=== PATIENT | female | born 2000 | race Asian ===

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

== ENCOUNTER → 2020-09-17 17:11 | Outpatient (CLI) | payer OTHER, MEDICAID, SELFPAY ==
[2020-09-17 18:17] LABS: Add Manual Diff / Slide Review NO; Basophils Absolute Auto 0 /uL (0-100); Basophils Percent Auto 0.4 % (0-2); Eosinophils Absolute Auto 100 /uL (0-450); Eosinophils Percent Auto 1.5 % (2-4); Hematocrit 42.8 % (36-46); Hemoglobin 14.5 g/dL (12.0-16.0); Lymphocytes Absolute Auto 2900 /uL (1100-4500); Lymphocytes Percent Auto 39.4 % (25-40); Mean Corpuscular HGB Conc 33.8 % (30-36); Mean Corpuscular Hemoglobin 29.2 PG (26-34); Mean Corpuscular Volume 86.5 fL (80-100); Monocytes Absolute Auto 600 /uL (0-900); Monocytes Percent Auto 7.6 % (3-14); Neutrophils Absolute Auto 3800 /uL (1500-7000); Neutrophils Percent Auto 51.1 % (50-75); Platelet Count 295 X10^3/uL (150-400); Red Blood Cell Count 4.95 X10^6/uL (4.0-5.2); Red Cell Distribution Width 13.1 % (11.6-14.8); White Blood Cell Count 7.4 X10^3/uL (4.5-11.0)
[2020-09-17 18:30] LABS: Alanine Aminotransferase 39 IU/L (<35); Albumin 4.6 g/dL (3.5-5.0); Albumin Globulin Ratio 1.5 (1.0-2.8); Alkaline Phosphatase 65 U/L (38-126); Aspartate Aminotransferase 28 IU/L (14-36); BUN Creatinine Ratio 22.7 (6-22); Bilirubin Total 0.3 mg/dL (0.2-1.3); Blood Urea Nitrogen 15 mg/dL (7-17); Calcium 9.6 mg/dL (8.4-10.2); Carbon Dioxide 24 mmol/L (22-32); Chloride 105 mmol/L (98-107); Estimated Glomerular Filt Rate > 60.0 mL/min (>60); Globulin 3.1 g/dL (1.7-4.1); Glucose 105 mg/dL (70-100); HEMOLYSIS < 15 (0-50); Potassium 3.8 mmol/L (3.4-5.1); Sodium 140 mmol/L (137-145); Total Protein 7.7 g/dL (6.3-8.2)
== END ==
PROVIDERS: PCP Family Medicine; Referring Provider Family Medicine; Visit Provider Family Medicine
DX: R42 Dizziness and giddiness (principal)
CPT/HCPCS: 36415; 80053; 85025

== ENCOUNTER → 2021-01-27 16:44 | Outpatient (CLI) | payer OTHER, MEDICAID, SELFPAY ==
[2021-01-27 17:21] LABS: Add Manual Diff / Slide Review NO; Basophils Absolute Auto 0 /uL (0-100); Basophils Percent Auto 0.4 % (0-2); Eosinophils Absolute Auto 100 /uL (0-450); Eosinophils Percent Auto 1.1 % (2-4); Hematocrit 41.9 % (36-46); Hemoglobin 14.4 g/dL (12.0-16.0); Lymphocytes Absolute Auto 3000 /uL (1100-4500); Lymphocytes Percent Auto 34.2 % (25-40); Mean Corpuscular HGB Conc 34.4 % (30-36); Mean Corpuscular Hemoglobin 29.5 PG (26-34); Mean Corpuscular Volume 85.6 fL (80-100); Monocytes Absolute Auto 500 /uL (0-900); Monocytes Percent Auto 6.3 % (3-14); Neutrophils Absolute Auto 5100 /uL (1500-7000); Platelet Count 294 X10^3/uL (150-400); Red Blood Cell Count 4.89 X10^6/uL (4.0-5.2); Red Cell Distribution Width 12.6 % (11.6-14.8); White Blood Cell Count 8.7 X10^3/uL (4.5-11.0)
[2021-01-27 17:30] LABS: Alanine Aminotransferase 35 IU/L (<35); Albumin 4.6 g/dL (3.5-5.0); Albumin Globulin Ratio 1.4 (1.0-2.8); Alkaline Phosphatase 63 U/L (38-126); Aspartate Aminotransferase 30 IU/L (14-36); BUN Creatinine Ratio 16.7 (6-22); Bilirubin Total 0.6 mg/dL (0.2-1.3); Blood Urea Nitrogen 11 mg/dL (7-17); Calcium 9.6 mg/dL (8.4-10.2); Carbon Dioxide 21 mmol/L (22-32); Chloride 107 mmol/L (98-107); Estimated Glomerular Filt Rate > 60.0 mL/min (>60); Globulin 3.4 g/dL (1.7-4.1); Glucose 94 mg/dL (70-100); HEMOLYSIS < 15 (0-50); Potassium 4.1 mmol/L (3.4-5.1); Sodium 139 mmol/L (137-145)
== END ==
PROVIDERS: PCP Family Medicine; Referring Provider Family Medicine; Visit Provider Family Medicine
DX: R74.01 Elevation of levels of liver transaminase levels (principal); L91.0 Hypertrophic scar; M79.671 Pain in right foot; R59.1 Generalized enlarged lymph nodes
CPT/HCPCS: 36415; 80053; 85025

== ENCOUNTER → 2021-02-11 15:46 | Outpatient (CLI) | payer OTHER, MEDICAID, SELFPAY ==
[2021-02-11 16:57] LABS: COVID19 -Nasal RAPID Negative (Negative)
== END ==
PROVIDERS: PCP Family Medicine; Visit Provider Nurse Practitioner
DX: R51.9 Headache, unspecified (principal); R11.0 Nausea; Z20.822 Contact with and (suspected) exposure to COVID-19
CPT/HCPCS: 87635

== ENCOUNTER 2021-02-16 23:49 | Emergency (ER) | payer OTHER, MEDICAID, SELFPAY ==
[2021-02-16 23:52] VITALS: BP 159/86; PULSE 84; RESP 20; TEMP 37.1; O2SAT 99
[2021-02-17 00:27] LABS: UR Morphine/Opiate cutoff 300 Negative (Negative); Ur Creatinine 50 (Normal); Ur Specific Gravity 1.025 (Normal); Urine Amphetamines Negative (Negative); Urine Barbiturates Negative (Negative); Urine Benzodiazepines Negative (Negative); Urine Cocaine Negative (Negative); Urine MDMA Negative (Negative); Urine Methadone Negative (Negative); Urine Methamphetamines Negative (Negative); Urine Oxycodone Negative (Negative); Urine Phencyclidine Negative (Negative); Urine Tetrahydrocannabinol Positive (Negative); Urine Tricyclic Antidepressant Negative (Negative); Urine pH 5 (Normal)
[2021-02-17 00:33] LABS: Acetaminophen < 10 ug/mL (10-30); Alanine Aminotransferase 25 IU/L (<35); Albumin 4.6 g/dL (3.5-5.0); Albumin Globulin Ratio 1.5 (1.0-2.8); Alkaline Phosphatase 57 U/L (38-126); Aspartate Aminotransferase 23 IU/L (14-36); BUN Creatinine Ratio 18.7 (6-22); Bilirubin Total 0.3 mg/dL (0.2-1.3); Blood Urea Nitrogen 14 mg/dL (7-17); Carbon Dioxide 23 mmol/L (22-32); Chloride 109 mmol/L (98-107); Estimated Glomerular Filt Rate > 60.0 mL/min (>60); Ethanol (ETOH) < 10 mg/dL; Glucose 107 mg/dL (70-100); HEMOLYSIS < 15 (0-50); Potassium 3.9 mmol/L (3.4-5.1); Salicylate < 1.0 mg/dL (<20); Sodium 141 mmol/L (137-145); Total Protein 7.6 g/dL (6.3-8.2)
[2021-02-17 00:36] LABS: Add Manual Diff / Slide Review NO; Basophils Absolute Auto 0 /uL (0-100); Basophils Percent Auto 0.4 % (0-2); Eosinophils Absolute Auto 200 /uL (0-450); Eosinophils Percent Auto 1.7 % (2-4); Hematocrit 39.5 % (36-46); Hemoglobin 13.4 g/dL (12.0-16.0); Lymphocytes Absolute Auto 3600 /uL (1100-4500); Mean Corpuscular HGB Conc 33.9 % (30-36); Mean Corpuscular Hemoglobin 29.3 PG (26-34); Mean Corpuscular Volume 86.4 fL (80-100); Monocytes Absolute Auto 700 /uL (0-900); Monocytes Percent Auto 6.8 % (3-14); Neutrophils Absolute Auto 5300 /uL (1500-7000); Neutrophils Percent Auto 54.1 % (50-75); Platelet Count 296 X10^3/uL (150-400); Red Blood Cell Count 4.57 X10^6/uL (4.0-5.2); Red Cell Distribution Width 12.3 % (11.6-14.8); White Blood Cell Count 9.9 X10^3/uL (4.5-11.0)
[2021-02-17 01:21] LABS: Free T4, Direct Thyroxine 1.41 ng/dL (0.78-2.19)
[2021-02-17 01:27] LABS: Thyroid Stimulating Hormone 2.13 uIU/mL (0.47-4.68)
--- NOTE | 2021-02-17 02:13 | ED.PSYCH ---
HPI - Psych General Chief Complaint: Psychiatric Symptoms Stated Complaint: wants mental health help Time Seen by Provider: 02/17/21 01:57 Source: patient Mode of arrival: Ambulatory History of Present Illness HPI Narrative: 20-year-old woman presents after having a stressful day with family members. She felt that she was in the middle of family arguments which brought up old memories and wounds from childhood traumas. She was stressed enough over these issues that she simply picked up her keys walked out and drove to the emergency department. She is not actively suicidal but states she thinks that it would be okay if she were not alive. She states that she could take pills or drive off a bridge she wanted to hurt herself. She has never done anything to try to harm herself before. She has recently discussed some of her anxieties and concerns with her primary care physician but was concerned that many of her issues were simply swept under the rug. Her next appointment with her primary care physician is not until March. She would like help in getting set up with a counselor and in fact left a message with her primary care physician yesterday and was more and more anxious when the office did not return her phone calls. She denies fevers, cough, chills, weight loss, abdominal pain, vomiting, nausea. She notes that she is much more anxious with foot tapping and being emotionally short and demanding with her boyfriend. At this point she still lives with her pain parents and feels that this is a relatively safe place for her to return to and she can also stay with her boyfriend but notes that she has not been particularly kind to him lately as her stressors have increased. She notes that she has been sleeping well and denies any auditory or visual hallucinations. Related Data Previous Rx's Medication Instructions Recorded diazepam 5 mg tablet 5 mg PO DAILY #10 tab 02/17/21 Allergies Allergy/AdvReac Type Severity Reaction Status Date / Time No Known Drug Allergies Allergy Verified 02/11/21 15:33 Review of Systems Review of Systems Narrative: Remainder of complete review of systems is otherwise unremarkable except for that included in the HPI. Patient History Social History Smoking Status: Current some day smoker Smoking Status: Current some day smoker Exam Narrative Exam Narrative: General: Alert appropriate in no acute distress Respiratory: Able to speak in full sentences, no obvious respiratory distress Skin: No obvious rashes, warm and dry Neurologic: Grossly intact no obvious asymmetries or abnormalities Psych: cooperative, flat affect poor eye contact, normal speech fluency and speech content Initial Vital Signs Initial Vital Signs: Vital Signs Temperature 98.7 F 02/16/21 23:52 Pulse Rate 84 02/16/21 23:52 Respiratory Rate 20 02/16/21 23:52 Blood Pressure 159/86 H 02/16/21 23:52 Pulse Oximetry 99 02/16/21 23:52 Course Orders Ordered: ED Orders 02/16/21 23:56 Acetaminophen Stat Complete Blood Count AUTO DIFF Stat Comprehensive Metabolic Panel Stat Ethanol (ETOH) Stat Free T4, Direct Thyroxine Stat Salicylate Stat Thyroid Stimulating Hormone Stat 02/17/21 00:17 Urine Drug Screen, Rapid Stat Discontinued Medications Diazepam (Diazepam 5 Mg Tablet) 5 mg PO NOW ONE Stop: 02/17/21 02:53 Vital Signs Vital signs: Vital Signs - 8 hr 02/16/21 23:52 02/17/21 02:48 Temperature 98.7 F Pulse Rate 84 76 Respiratory Rate 20 18 Blood Pressure 159/86 H 130/71 Pulse Oximetry 99 99 MDM - Psych Lab Data Result diagrams: 02/17/21 00:10 02/17/21 00:10 Labs: Lab Results 02/17/21 02/17/21 02/17/21 Range/Units 00:10 00:10 00:10 WBC 9.9 (4.5-11.0) X10^3/uL RBC 4.57 (4.0-5.2) X10^6/uL Hgb 13.4 (12.0-16.0) g/dL Hct 39.5 (36-46) % MCV 86.4 (80-100) fL MCH 29.3 (26-34) PG MCHC 33.9 (30-36) % RDW 12.3 (11.6-14.8) % Plt Count 296 (150-400) X10^3/uL Neut % (Auto) 54.1 (50-75) % Lymph % (Auto) 37.0 (25-40) % [place] % (Auto) 6.8 (3-14) % Eos % (Auto) 1.7 L (2-4) % Baso % (Auto) 0.4 (0-2) % Neut # (Auto) 5300 (6921-2199) /uL Lymph # (Auto) 3600 (0297-6732) /uL [place] # (Auto) 700 (0-900) /uL Eos # (Auto) 200 (0-450) /uL Baso # (Auto) 0 (0-100) /uL Sodium 141 (137-145) mmol/L Potassium 3.9 (3.4-5.1) mmol/L Chloride 109 H (98-107) mmol/L Carbon Dioxide 23 (22-32) mmol/L BUN 14 (7-17) mg/dL Creatinine 0.75 (0.52-1.04) mg/dL Estimated GFR > 60.0 (>60) mL/min BUN/Creatinine Ratio 18.7 (6-22) Glucose 107 H (70-100) mg/dL Calcium 9.0 (8.4-10.2) mg/dL Total Bilirubin 0.3 (0.2-1.3) mg/dL AST 23 (14-36) IU/L ALT 25 (<35) IU/L Alkaline Phosphatase 57 (38-126) U/L Total Protein 7.6 (6.3-8.2) g/dL Albumin 4.6 (3.5-5.0) g/dL Globulin 3.0 (1.7-4.1) g/dL Albumin/Globulin Ratio 1.5 (1.0-2.8) TSH 2.13 (0.47-4.68) uIU/mL Free T4 1.41 (0.78-2.19) ng/dL Salicylates < 1.0 (<20) mg/dL U Opiates 300ng/mL cut (Negative) Ur Oxycodone Screen (Negative) Urine Methadone Screen (Negative) Acetaminophen < 10 L (10-30) ug/mL Ur Barbiturates Screen (Negative) U Tricyclic Antidepress (Negative) Ur Phencyclidine Scrn (Negative) Ur Amphetamines Screen (Negative) U Methamphetamines Scrn (Negative) Ur MDMA Scrn (Ecstasy) (Negative) U Benzodiazepines Scrn (Negative) Urine Cocaine Screen (Negative) U Marijuana (THC) Screen (Negative) Ethyl Alcohol < 10 ( - 10) mg/dL 02/17/21 Range/Units 00:17 WBC (4.5-11.0) X10^3/uL RBC (4.0-5.2) X10^6/uL Hgb (12.0-16.0) g/dL Hct (36-46) % MCV (80-100) fL MCH (26-34) PG MCHC (30-36) % RDW (11.6-14.8) % Plt Count (150-400) X10^3/uL Neut % (Auto) (50-75) % Lymph % (Auto) (25-40) % [place] % (Auto) (3-14) % Eos % (Auto) (2-4) % Baso % (Auto) (0-2) % Neut # (Auto) (6877-2698) /uL Lymph # (Auto) (9540-8101) /uL [place] # (Auto) (0-900) /uL Eos # (Auto) (0-450) /uL Baso # (Auto) (0-100) /uL Sodium (137-145) mmol/L Potassium (3.4-5.1) mmol/L Chloride (98-107) mmol/L Carbon Dioxide (22-32) mmol/L BUN (7-17) mg/dL Creatinine (0.52-1.04) mg/dL Estimated GFR (>60) mL/min BUN/Creatinine Ratio (6-22) Glucose (70-100) mg/dL Calcium (8.4-10.2) mg/dL Total Bilirubin (0.2-1.3) mg/dL AST (14-36) IU/L ALT (<35) IU/L Alkaline Phosphatase (38-126) U/L Total Protein (6.3-8.2) g/dL Albumin (3.5-5.0) g/dL Globulin (1.7-4.1) g/dL Albumin/Globulin Ratio (1.0-2.8) TSH (0.47-4.68) uIU/mL Free T4 (0.78-2.19) ng/dL Salicylates (<20) mg/dL U Opiates 300ng/mL cut Negative (Negative) Ur Oxycodone Screen Negative (Negative) Urine Methadone Screen Negative (Negative) Acetaminophen (10-30) ug/mL Ur Barbiturates Screen Negative (Negative) U Tricyclic Antidepress Negative (Negative) Ur Phencyclidine Scrn Negative (Negative) Ur Amphetamines Screen Negative (Negative) U Methamphetamines Scrn Negative (Negative) Ur MDMA Scrn (Ecstasy) Negative (Negative) U Benzodiazepines Scrn Negative (Negative) Urine Cocaine Screen Negative (Negative) U Marijuana (THC) Screen Positive H (Negative) Ethyl Alcohol ( - 10) mg/dL Point of Care Testing Test Results Negative Urine Dip Bedside Urine Glucose Negative Bedside Urine Bilirubin - Negative Bedside Urine Ketone - Negative Urine Specific [place] 1.025 Bedside Urine Occult Blood - Negative Bedside Urine pH 6.0 Bedside Urine Protein - Negative Bedside Urine Urobilinogen - Negative Bedside Urine Nitrite - Negative Bedside Urine Leukocytes - Negative Esterase MDM Narrative Medical decision making narrative: 20-year-old woman with increasing anxiety and recent triggers with what sounds like a family argument this evening. She is interested in talking with a counselor. She has left the message with her primary care physician regarding this. Will also ask our high school social studies tutor to see if she can call tomorrow an offer any suggestions on setting up a counseling appointment. She is willing to consider antidepressants which may be very appropriate for her. In the meantime I have given her a very brief prescription for diazepam to help with anxieties during the day. She states that she is not suicidal or homicidal. She is thinking and interacting appropriately. At this point she is safe for home discharge Discharge Plan Departure Patient Disposition: Home Clinical Impression: Acute situational disturbance, Anxiety Depression Qualifiers: Depression Type: unspecified Qualified Code(s): F32.9 - Major depressive disorder, single episode, unspecified Instructions: DI for Anxiety -- Adult, DI for Suicidal Ideation-Adult Activity Restrictions/Additional Instructions: Thank you for coming in today I am sorry that today has been so stressful for you. Please try the 5 mg of Valium/diazepam and see if this is helpful in allowing you to better process the stressors. This is not affects but can be a helpful bridge in getting in to see all of your doctors. A prescription for this was electronically transmitted to [facility] in [place] for you to chicken picker later today. Please contact Dr. Lew is office again and see if you can schedule an appointment sooner to discuss anxiety and depression and the possibility of medications for depression. Please ask if they have further suggestions regarding seeing a counselor I will ask our ER high school social studies tutor to follow-up with you by phone tomorrow to see if she has any additional suggestions for resources that you might be able to access to get in to see a counselor If you feel that you are getting worse, need to hurt yourself or hurt anybody else, please feel free to return to the ER and I am happy to help. Prescriptions: New diazepam 5 mg tablet 5 mg PO DAILY Qty: 10 RF: 0 Referrals: Trista Lew MD [Primary Care Provider] -
[2021-02-17 02:48] VITALS: BP 130/71; PULSE 76; RESP 18; O2SAT 99
[2021-02-17] MEDS: diazePAM 5 MG TABLET PO (03:03)
--- NOTE | 2021-02-17 13:54 | CM.SWNOTE ---
SPECIAL NEEDS TUTOR Note for F/U SPECIAL NEEDS TUTOR receives consult for f/u from ED provider Dr. Gonsalez. Patient presents to the ED early this morning with concern for anxiety and depression and SI. Patient denies current SI upon d/c from the ED and Dr. Gonsalez requests f/u for support in seeking MH outpatient provider for patient. SPECIAL NEEDS TUTOR calls patient and patient endorses that she is need of a MH provider. Patient states she called [facility] and they have openings but they are not meeting with patients in person and she prefers in person sessions. Patient endorses she has medicaid/espinoza insurance. SPECIAL NEEDS TUTOR endorses that SPECIAL NEEDS TUTOR will call around [facility] providers and look for openings. SPECIAL NEEDS TUTOR calls [facility] and it is reported that they are fully booked with an extensive waiting list. It is suggested that SPECIAL NEEDS TUTOR tries calling [facility] (telehealth), [facility] in [place], [place] , or [email or web address]. SPECIAL NEEDS TUTOR calls [facility] and leaves requesting return call. SPECIAL NEEDS TUTOR calls [facility] and it is reported that they are not taking new clients but [facility] may be. SPECIAL NEEDS TUTOR calls [facility] and SPECIAL NEEDS TUTOR provides patient information, it is reported they are are accepting patients and in person sessions. SPECIAL NEEDS TUTOR provides patient's contact information. [facility] reports they will call patient later today to set up an intake appointment. SPECIAL NEEDS TUTOR calls patient back. Patient endorses agreement and understanding. SPECIAL NEEDS TUTOR endorses that patient should call SPECIAL NEEDS TUTOR back if she does not hear from [facility] at the end of the day. Patient endorses she is feeling better since leaving the hospital, but she is tired. Patient states she has an appointment with Dr. Lew her PCP for next week. DELIA Ohara
== END 2021-02-17 03:09 | disposition home or self-care (01) ==
PROVIDERS: Emergency Provider Emergency Medicine; PCP Family Medicine
DX: F43.0 Acute stress reaction (principal); F41.9 Anxiety disorder, unspecified; F32.9 Major depressive disorder, single episode, unspecified
CPT/HCPCS: 36415; 80053; 80305; 80320; 80329; 81003; 81025; 84439; 84443; 85025; 99284; G0480

== ENCOUNTER → 2022-01-07 16:18 | Outpatient (ROUT) | payer OTHER, MEDICAID, SELFPAY ==
[2022-01-07 16:37] LABS: COVID19 -Nasal RAPID POSITIVE (Negative)
== END ==
PROVIDERS: PCP Family Medicine; Visit Provider Family Medicine
DX: R05.9 Cough, unspecified (principal); U07.1 COVID-19
CPT/HCPCS: 87635

== ENCOUNTER 2022-02-06 16:13 | Emergency (ER) | payer OTHER, MEDICAID, SELFPAY ==
[2022-02-06 16:17] VITALS: BP 150/85; PULSE 93; RESP 20; TEMP 36.9; O2SAT 98
--- NOTE | 2022-02-06 16:20 | DI.RAD.S_ITS ---
PROCEDURE: XR CHEST 2V INDICATIONS: cough, recent covid TECHNIQUE: 2 views of the chest were acquired. COMPARISON: [facility], , CHEST 2 VIEW, 08/02/2016, 16:50. FINDINGS: Surgical changes and devices: None. Lungs and pleura: Lungs are clear. No pleural effusions or pneumothorax. Mediastinum: Mediastinal contours are normal. Heart size is normal. Bones and chest wall: No suspicious bony abnormalities. Soft tissues appear unremarkable. IMPRESSION: No acute cardiopulmonary findings. Dictated by: Jaime Carr M.D. on 02/06/2022 at 16:07 Approved by: Jaime Carr M.D. on 02/06/2022 at 16:07
--- NOTE | 2022-02-06 18:58 | ED.URI ---
HPI - URI/Sore Throat General Chief Complaint: Upper Respiratory Symptoms Stated Complaint: RESPIRATORY ISSUES, COUGH, HEADACHE Time Seen by Provider: 02/06/22 18:42 Source: patient Mode of arrival: Ambulatory History of Present Illness HPI Narrative: 21-year-old female nonsmoker with noncontributory medical history presents with her significant other and a chief complaint of about 1 week of runny nose, nasal congestion, sore throat and dry hacking cough. She is had subjective fever and some aches but not for a few days. She denies GI symptoms such as nausea, vomiting or diarrhea. She denies any dysuria, frequency or urgency. She and her significant other both had COVID about 1 month ago with relatively similar symptoms and had a complete resolution prior to these symptoms kicking in. Related Data Previous Rx's Medication Instructions Recorded diazepam 5 mg tablet 5 mg PO DAILY anxiety #10 tabs 02/17/21 Allergies Allergy/AdvReac Type Severity Reaction Status Date / Time No Known Drug Allergies Allergy Verified 02/11/21 15:33 Review of Systems Review of Systems Narrative: GENERAL: See HPI HEENT: See HPI RESPIRATORY: See HPI CARDIOVASCULAR: Denies chest pain, palpitations, orthopnea, edema, GASTROINTESTINAL: Denies nausea, vomiting, abdominal pain, diarrhea, constipation, melena. : Denies dysuria, frequency, incontinence, hematuria, urinary retention. MUSCULOSKELETAL: denies weakness, joint pain, or bony pain SKIN: Denies rash, skin lesions, or other NEUROLOGIC: Denies weakness, headache, numbness, change in speech, confusion, seizures, incoordination. PSYCHIATRIC: No concerning psychosocial issues. 12 point review of systems is negative except for those stated above Patient History Social History Smoking Status: Former smoker Smoking Status: Former smoker Exam Narrative Exam Narrative: GENERAL: [21] year old patient appears stated age. Well-developed patient, in mild distress. No significant work of breathing HEAD: Atraumatic. Normocephalic. EYES: Pupils equal round and reactive. Extraocular motions intact. No scleral icterus. No injection or drainage. ENT: Bilateral clear nasal drainage and congestion, mild amount of posterior pharynx nasal drip, no tonsillar swelling or erythema NECK: Trachea midline. Non tender CARDIOVASCULAR: Regular rate and rhythm without murmurs, gallops, or rubs. RESPIRATORY: Clear to auscultation. Breath sounds equal bilaterally. No wheezes, rales, or rhonchi. GASTROINTESTINAL: Abdomen soft, non-tender, nondistended. EXTREMITIES: No edema or joint tenderness. BACK: Nontender without deformity or crepitance. No flank tenderness. NEURO: AOx3. SKIN: No rash or erythema of visible areas Initial Vital Signs Initial Vital Signs: Vital Signs Temperature 98.4 F 02/06/22 16:17 Pulse Rate 93 H 02/06/22 16:17 Respiratory Rate 20 02/06/22 16:17 Blood Pressure 150/85 H 02/06/22 16:17 Pulse Oximetry 98 02/06/22 16:17 Oxygen Delivery Method 02/06/22 16:17 Course Orders Ordered: ED Orders 02/06/22 19:12 COVID19 -Nasal RAPID/Pre-Proc Stat Vital Signs Vital signs: Vital Signs - 8 hr 02/06/22 19:48 Pulse Rate 90 Respiratory Rate 18 Pulse Oximetry 97 Oxygen Delivery Method Room Air MDM - URI/Sore Throat Lab Data Labs: Lab Results 02/06/22 Range/Units 19:12 SARS-CoV-2 (PCR) Negative (Negative) Imaging Data Chest x-ray: Radiologist's Impression: Diana Dawn??21??F??2000 ? Allergy/Adv: No Known Drug Allergies (More??) Close Chest X-Ray (Signed) Jaime Carr - 02/06/22 Launch?[address] [address] XRay Report Signed Patient: Diana Dawn MR#: [id number] : 2000 Acct:[id number] Age/Sex: 21 / F Date of Service: 02/06/22 Loc: ED Accession Number: [id number] ?? Procedure: XR chest 2V Ordering Provider: Sabine Huerta D.O. PROCEDURE:? XR CHEST 2V ? INDICATIONS:? cough, recent covid ? TECHNIQUE:? 2 views of the chest were acquired.? ? COMPARISON:? [facility], CHEST 2 VIEW, 08/02/2016, 16:50. ? FINDINGS:? ? Surgical changes and devices:? None.? ? Lungs and pleura:? Lungs are clear.? No pleural effusions or pneumothorax.? ? Mediastinum:? Mediastinal contours are normal.? Heart size is normal.? ? Bones and chest wall:? No suspicious bony abnormalities.? Soft tissues appear unremarkable.? ? IMPRESSION:? No acute cardiopulmonary findings. ? ? Dictated by: Jaime Carr M.D. on 02/06/2022 at 16:07 ? ? Approved by: Jaime Carr M.D. on 02/06/2022 at 16:07 ? Discharge Plan Departure Patient Disposition: Home Clinical Impression: Upper respiratory infection Instructions: DI for Viral Upper Respiratory Infection -- Adult Activity Restrictions/Additional Instructions: *You have been diagnosed with [viral upper respiratory infection] *What to do: *Please continue to take your regular medications as directed. [ ] New medication prescriptions sent to your pharmacy: [ ] [ ] New medication written as a paper prescription [x ] No new medications given *Please follow up with your primary care provider in 2-3 days, call for an appointment. Let them know you were seen in the Emergency Department and that we ask that you be seen in follow up. We will electronically transmit a record of today's note if your PCP is in our system *If you do not have a primary care provider please contact the [facility] Resource line at [phone]. They will ask some questions about your medical history and help get you set up with a doctor in the community. *Return to Emergency Department if you should have any new, worsening or concerning symptoms, such as [fever greater than 101 F, shaking chills, worsening pain, persistent vomiting or other bothersome symptoms] Prescriptions: No Action diazepam 5 mg tablet 5 mg PO DAILY Qty: 10 0RF Referrals: Trista Lew MD [Primary Care Provider] - Stand Alone Forms: Work Release Note Visit Report Forms: Patient Portal/API
[2022-02-06 19:41] LABS: COVID19 -Nasal RAPID Negative (Negative)
[2022-02-06 19:48] VITALS: PULSE 90; RESP 18; O2SAT 97
== END 2022-02-06 19:49 | disposition home or self-care (01) ==
PROVIDERS: Emergency Provider Emergency Medicine; PCP Family Medicine
DX: J06.9 Acute upper respiratory infection, unspecified (principal); Z20.822 Contact with and (suspected) exposure to COVID-19
CPT/HCPCS: 71046; 87635; 99281; 99283; C9803

== ENCOUNTER → 2022-05-05 19:30 | Outpatient (CLI) | payer OTHER, MEDICAID, SELFPAY ==
[2022-05-05 20:28] LABS: Influenza A - CEPHEID Flu A POSITIVE (NEGATIVE); Influenza B - CEPHEID Flu B NEGATIVE (NEGATIVE); Respiratory Syncytial Virus Negative (Negative)
[2022-05-05 20:30] LABS: COVID-19 CEPHEID 4-PLEX PCR Negative (Negative)
== END ==
PROVIDERS: PCP Family Medicine; Visit Provider Registered Nurse
DX: R50.9 Fever, unspecified (principal)
CPT/HCPCS: 0241U

== ENCOUNTER 2022-06-08 15:24 | Emergency (ER) | payer OTHER, MEDICAID, SELFPAY ==
[2022-06-08 15:36] VITALS: BP 137/95; PULSE 99; RESP 16; TEMP 36.7; O2SAT 97; BMI 44.2
--- NOTE | 2022-06-08 16:56 | ED_ITS ---
HPI - Female Genitourinary <JEAN Jameson - Last Filed: 06/08/22 19:39> General Chief complaint: Urogenital-Female Stated complaint: Thinks bladder infection Time Seen by Provider: 06/08/22 16:40 Source: patient Mode of arrival: Family Vehicle History of Present Illness HPI Narrative: This is a 21-year-old female presents to the emergency department with 1 week of intermittent dysuria, cloudy urine, abnormal vaginal discharge urinary frequency with urgency. Patient denies history of UTIs, she is not a diabetic, denies fever, vomiting or chills. Denies flank pain, diarrhea, cough or congestion. Patient was influenza A positive on 05/05/2022. Denies any shortness of breath wheezing, chest pain, or productive cough. She is tolerating p.o.. Related Data Previous Rx's Medication Instructions Recorded diazepam 5 mg tablet 5 mg PO DAILY anxiety #10 tabs 02/17/21 albuterol sulfate 90 mcg/actuation 2 puff inhalation Q4-6H PRN 05/05/22 aerosol inhaler shortness of breath or wheezing #6.7 grams inhalational spacing device #1 ea 05/05/22 (BreatheRite MDI Spacer) cephalexin 500 mg capsule 500 mg PO TID 5 days #15 caps 06/08/22 metronidazole 500 mg tablet 500 mg PO BID 7 days #14 tabs 06/08/22 phenazopyridine 200 mg tablet 200 mg PO QPC PRN pain 6 doses #7 06/08/22 (Pyridium) tabs Allergies Allergy/AdvReac Type Severity Reaction Status Date / Time No Known Drug Allergies Allergy Verified 06/08/22 15:36 Review of Systems <JEAN Jameson - Last Filed: 06/08/22 19:39> Review of Systems ROS Unobtainable: All systems reviewed & are unremarkable except as noted in HPI and below Patient History <JEAN Jameson - Last Filed: 06/08/22 19:39> alcohol intake frequency: 0-2 drinks per day Substance Use Type: does not use Exam <JEAN Jameson - Last Filed: 06/08/22 19:39> Narrative Exam Narrative: Reviewed vitals signs and nursing notes. General: cooperative, comfortable, in no acute distress, well groomed, elevated BMI HEENT: symmetrical facial expressions, moist mucous membranes Cardiovascular: regular rate and rhythm, no peripheral edema, warm extremities Respiratory: normal effort, able to speak in complete sentences, without wheezing, stridor, or abnormal breath sounds. No retractions or tachypnea. GI: abdomen soft, nontender to palpation, nondistended, without masses, rebound tenderness or exquisite tenderness with exam. No CVA tenderness MSK: moves all extremities, neurovascularly intact, no weakness, normal tone Skin: brisk capillary refill, without pallor or erythema Neuro: normal speech and cognition, A&O x3, ambulatory, clear speech Psych: mental status is grossly normal, congruent mood, normal affect, pleasant and cooperative Initial Vital Signs Initial Vital Signs: Vital Signs Temperature 98.1 F 06/08/22 15:36 Pulse Rate 99 H 06/08/22 15:36 Respiratory Rate 16 06/08/22 15:36 Blood Pressure 137/95 H 06/08/22 15:36 Pulse Oximetry 97 06/08/22 15:36 Oxygen Delivery Method 06/08/22 15:36 <Geoffrey Salazar DO - Last Filed: 06/08/22 21:20> Initial Vital Signs Initial Vital Signs: Vital Signs Temperature 98.1 F 06/08/22 15:36 Pulse Rate 99 H 06/08/22 15:36 Respiratory Rate 16 06/08/22 15:36 Blood Pressure 137/95 H 06/08/22 15:36 Pulse Oximetry 97 06/08/22 15:36 Oxygen Delivery Method 06/08/22 15:36 Course <JEAN Jameson - Last Filed: 06/08/22 19:39> Orders Ordered: ED Orders 06/08/22 16:54 Chlamydia Gonorrhea PCR -URINE Stat Urine Culture Stat Urine Microscopic Stat 06/08/22 16:55 Wet Prep Tric BV Christine Stat Discontinued Medications Cephalexin HCl (Cephalexin 250 Mg Capsule) 1,000 mg PO NOW ONE Stop: 06/08/22 17:28 Last Admin: 06/08/22 17:41 Dose: 1,000 mg Documented By: ELAYNE Ketorolac Tromethamine (Ketorolac 30 Mg/Ml Vial) 30 mg IM NOW ONE Stop: 06/08/22 17:35 Last Admin: 06/08/22 17:42 Dose: 30 mg Documented By: ELAYNE Metronidazole (Metronidazole 500 Mg Tablet) 500 mg PO NOW ONE Stop: 06/08/22 17:29 Last Admin: 06/08/22 17:41 Dose: 500 mg Documented By: ELAYNE Ondansetron HCl (Ondansetron 4 Mg/2 Ml Inj) 4 mg IV NOW PRN PRN Reason: Nausea And Vomiting Ondansetron HCl (Ondansetron 4 Mg Odt) 4 mg SL NOW PRN PRN Reason: Nausea And Vomiting Phenazopyridine HCl (Phenazopyridine 100 Mg Tablet) 200 mg PO NOW ONE Stop: 06/08/22 17:28 Last Admin: 06/08/22 17:42 Dose: 200 mg Documented By: ELAYNE Vital Signs Vital signs: Vital Signs - 8 hr 06/08/22 15:36 06/08/22 17:52 Temperature 98.1 F Pulse Rate 99 H 90 Respiratory Rate 16 18 Blood Pressure 137/95 H 132/63 Pulse Oximetry 97 96 Oxygen Delivery Method Room Air Room Air <Geoffrey Salazar DO - Last Filed: 06/08/22 21:20> Orders Ordered: ED Orders 06/08/22 16:54 Chlamydia Gonorrhea PCR -URINE Stat Urine Culture Stat Urine Microscopic Stat 06/08/22 16:55 Wet Prep Tric BV Christine Stat Discontinued Medications Cephalexin HCl (Cephalexin 250 Mg Capsule) 1,000 mg PO NOW ONE Stop: 06/08/22 17:28 Last Admin: 06/08/22 17:41 Dose: 1,000 mg Documented By: ELAYNE Ketorolac Tromethamine (Ketorolac 30 Mg/Ml Vial) 30 mg IM NOW ONE Stop: 06/08/22 17:35 Last Admin: 06/08/22 17:42 Dose: 30 mg Documented By: ELAYNE Metronidazole (Metronidazole 500 Mg Tablet) 500 mg PO NOW ONE Stop: 06/08/22 17:29 Last Admin: 06/08/22 17:41 Dose: 500 mg Documented By: ELAYNE Ondansetron HCl (Ondansetron 4 Mg/2 Ml Inj) 4 mg IV NOW PRN PRN Reason: Nausea And Vomiting Ondansetron HCl (Ondansetron 4 Mg Odt) 4 mg SL NOW PRN PRN Reason: Nausea And Vomiting Phenazopyridine HCl (Phenazopyridine 100 Mg Tablet) 200 mg PO NOW ONE Stop: 06/08/22 17:28 Last Admin: 06/08/22 17:42 Dose: 200 mg Documented By: ELAYNE Vital Signs Vital signs: Vital Signs - 8 hr 06/08/22 15:36 06/08/22 17:52 Temperature 98.1 F Pulse Rate 99 H 90 Respiratory Rate 16 18 Blood Pressure 137/95 H 132/63 Pulse Oximetry 97 96 Oxygen Delivery Method Room Air Room Air MDM - Female Genitourinary <JEAN Jameson - Last Filed: 06/08/22 19:39> Lab Data Lab results narrative: C #: [id number] ANA: 11/20/18-9 STATUS: COMP REQ #: [id number] SPDESC: RECD: 11/20/18-[address]: Aleena Freed P.A-C SOURCE: Urine CC ENTR: 11/20/[address] [facility] [address]: FAX TO: ORDERED: URINE CULTURE Procedure Result Verified Site Urine Culture Final 11/22/18724 Organism 1 Proteus mirabilis [place] Count 50,000 - 60,000 CFU/ml 1. Proteus mirabilis M.I.C. RX --------- --- * Amoxicillin/Clavulanate S * Ampicillin S * Ampicillin/Sulbactam S * Cefazolin S * Cefepime S * Ceftriaxone S * Ciprofloxacin S * Ertapenem S * Gentamicin S * Imipenem S * Levofloxacin S * Nitrofurantoin R * Tobramycin S * Trimethoprim/Sulfamethoxazole S * Piperacillin/Tazobactam S Patient has history of Proteus mirabilis UTI showing resistance only to nitrofurantoin [facility] CLIA ID [id number] [address] [place] [address] RUN DATE: 06/08/22 Specimen Inquiry PAGE 1 RUN TIME: 1936 Name: Diana Dawn Age/Sex: 21/F Attend Dr: Rachele Oliveira Unit#: [id number] : 2000Location: ED Re06/08/22 Disch: Status: DEP ER SPEC #: [id number] ANA: 06/08/22-573 STATUS: COMP REQ #: [id number] SPDESC: RECD: 06/08/[address]: Rachele Oliveira [facility] SOURCE: Vaginal ENTR: 06/08/[address] [facility] [address]: Tian Dumas MD FAX TO: ORDERED: Wet Prep Procedure Result Verified Site Wet Prep Tric BV Christine Final 06/08/22- 1710 White blood cells Occasional WBC seen Clue cells: None seen Yeast: None seen Trichomonas: None seen Labs: Lab Results 06/08/22 Range/Units 16:54 Urine RBC None seen (0-5/HPF) Urine WBC 1-5/hpf (0-5/HPF) Ur Squamous Epith Cells 1-5 /hpf (0-5/HPF) Urine Bacteria Few (2-10) H (None) Ur Culture Indicated? Cult not indicated MDM Narrative Medical decision making narrative: This patient presents with symptoms consistent with acute uncomplicated urinary tract infection for 1 week with abnormal vaginal discharge. Well-appearing without fever or systemic symptoms. Low suspicion for acute pyelonephritis given lack of fever, CVAT, or systemic features. Low suspicion for ureteral/kidney stone or infected stone. U-preg negative so doubt ectopic . Differential diagnosis include dehydration, contact dermatitis acute cystitis, ovarian torsion, malignancy, STI/PID, appendicitis, retained foreign body, perineal infection. Course of Care: Urine dip is negative for WBCs and RBCs, sent down for urine microscopy, urine is negative, wet prep obtained with patient self swabbing, will follow-up Patient's urine microscopy is positive for bacteria without RBCs.. Patient's wet prep is positive for WBCs, will treat for bacterial vaginosis with Flagyl and acute cystitis with cephalexin, Zofran, Pyridium, and Toradol IM Patient's symptoms improved over duration of stay with above-stated therapies. She was able to p.o. hydrate. Will follow urine culture results, encouraged tylenol/motrin for pain, hydration, and recheck with primary care provider if not improving within 2 days, and return to the emergency department for worsening symptoms, vomiting, fever and chills. Patient's serum is negative. Urine G and C via PCR is pending MIPS: This encounter doesn't have any diagnosis associated with MIPS criteria. Social determinants of health that may impact treatment or disposition: None Vital Signs: I, the ED provider, reviewed the patient?s vital signs, past medical records and encounters if available, and nursing notes. I have spoken with the patient/family and discussed today?s findings whom verbalize understanding. Counseling was provided regarding the diagnosis and prognosis, and specific details were provided for the plan of care. Questions are addressed and there is agreement with the plan and for follow-up. Patient is appropriate f or outpatient management. Portions of this chart have been created with [employer] voice recognition software. Occasional wrong word or sound alike substitutions may have occurred due to the inherent limitations of this software. I, JEAN Hough, personally performed the services described in the documentation, and it accurately records my words and actions. I collaborated with the ED attending physician for KAILEY level 2, 3, and some level 4s as needed Electronically signed by: JEAN Hough <Geoffrey Salazar DO - Last Filed: 06/08/22 21:20> Lab Data Labs: Lab Results 06/08/22 Range/Units 16:54 Urine RBC None seen (0-5/HPF) Urine WBC 1-5/hpf (0-5/HPF) Ur Squamous Epith Cells 1-5 /hpf (0-5/HPF) Urine Bacteria Few (2-10) H (None) Ur Culture Indicated? Cult not indicated Discharge Plan Departure Patient Disposition: Home Clinical Impression: Urinary tract infection Qualifiers: Urinary tract infection type: acute cystitis Hematuria presence: without hematuria Qualified Code(s): N30.00 - Acute cystitis without hematuria Vaginitis Qualifiers: Chronicity: acute Qualified Code(s): N76.0 - Acute vaginitis Instructions: Bacterial Vaginosis, DI for Urinary Tract Infection (UTI) Activity Restrictions/Additional Instructions: *You have been diagnosed with a bladder infection that did not show up initially on the dipstick but showed up on the microscope. Please stay hydrated, take Tylenol and ibuprofen every 6 hours for your symptoms, use Pyridium for bladder spasms, take Flagyl for the vaginitis, follow-up with your primary care provider if you do not have resolution of your symptoms, for your bladder infection, your symptoms should start to improve, return for any worsening. We will call you if the urine culture grows a bacteria that needs a different treatment. If you have any worsening like fever, urine color is more cloudy, (it will be tented orange from the Pyridium), please come back to the emergency department for another evaluation. There is a chance that the urinary bacteria is resistant to the antibiotic prescribed, however I looked at your prior results and this is the best broad-spectrum, if you have any worsening, like vomiting, fever, chills, no improvement after 24 hours, please come back for another evaluation. It was a pleasure to meet you, I hope you feel better soon. *What to do: *Please continue to take your regular medications as directed. [x ] New medication prescriptions sent to your pharmacy: [[facility]] [ ] New medication written as a paper prescription [ ] No new medications given *Please follow up with your primary care provider in 2-3 days, call for an appointment. Let them know you were seen in the Emergency Department and that we asked that you be seen for follow-up. We will electronically transmit a record of today's note if your PCP is in our system *If you do not have a primary care provider please contact [phone] to establish care with one of the [facility] primary care providers. *Return to Emergency Department if you should have any new, worsening, or concerning symptoms, such as [fever greater than 101F, chills, worsening pain, persistent vomiting or other bothersome symptoms]. Prescriptions: New metronidazole 500 mg tablet 500 mg PO BID 7 Days Qty: 14 0RF cephalexin 500 mg capsule 500 mg PO TID 5 Days Qty: 15 0RF phenazopyridine [Pyridium] 200 mg tablet 200 mg PO QPC PRN (Reason: pain) Qty: 7 0RF No Action albuterol sulfate 90 mcg/actuation HFA aerosol inhaler 2 puff inhalation Q4-6H PRN (Reason: shortness of breath or wheezing) Qty: 6.7 0RF (DME) BreatheRite MDI Spacer Spacer See Rx Instructions .Route Qty: 1 0RF Rx Instructions: As directed diazepam 5 mg tablet 5 mg PO DAILY Qty: 10 0RF Referrals: Tian Dumas MD [Primary Care Provider] - Stand Alone Forms: Patient Portal/API <Geoffrey Salazar DO - Last Filed: 06/08/22 21:20> [facility]: Dr Salazar Co-Sign Statement: I was available for consultation during this patient's emergency department visit. This chart is signed by myself for administrative purposes only. I did not have direct contact with this patient during this visit. They were seen independently by the APC.
[2022-06-08 17:25] LABS: Bacteria Urine Few (2-10); Culture Indicated Urine Cult Not Indicated; RBC Urine None Seen (0-5/HPF); Squamous Epithelial Cell Urine 1-5 /HPF (0-5/HPF); WBC Urine 1-5/HPF (0-5/HPF)
[2022-06-08] MEDS: metroNIDAZOLE 500 MG TABLET PO (17:41)
[2022-06-08] MEDS: cephALEXin 250 MG CAPSULE 1000 MG PO (17:41)
[2022-06-08] MEDS: KETOROLAC 30 MG/ML VIAL IM (17:42)
[2022-06-08] MEDS: PHENAZOPYRIDINE 100 MG TABLET 200 MG PO (17:42)
[2022-06-08 17:52] VITALS: BP 132/63; PULSE 90; RESP 18; O2SAT 96
[2022-06-08 21:32] LABS: Urine N gonorrhoeae NOT DETECTED
[2022-06-08 21:43] LABS: Urine Chlamydia NOT DETECTED
== END 2022-06-08 17:52 | disposition home or self-care (01) ==
PROVIDERS: Emergency Provider Nurse Practitioner Critical Care Medicine; PCP Family Medicine
DX: N30.00 Acute cystitis without hematuria (principal); N76.0 Acute vaginitis
CPT/HCPCS: 81015; 87086; 87210; 87491; 87591; 96372; 99283; J1885

== ENCOUNTER 2022-07-02 17:19 | Emergency (ER) | payer OTHER, MEDICAID, SELFPAY ==
[2022-07-02] VITALS (7 sets, daily range): BP systolic 153–165; BP diastolic 77–92; PULSE 92–105; RESP 18–28; TEMP 36.8; O2SAT 96–97; BMI 45.7
[2022-07-02 18:20] LABS: Influenza A - CEPHEID Flu A NEGATIVE (NEGATIVE); Influenza B - CEPHEID Flu B NEGATIVE (NEGATIVE); Respiratory Syncytial Virus Negative (Negative)
[2022-07-02 18:22] LABS: COVID-19 CEPHEID 4-PLEX PCR Negative (Negative)
[2022-07-02] MEDS: ALBUTEROL/IPRATROPIUM 3 ML AMPUL INH (18:48)
--- NOTE | 2022-07-02 19:44 | ED_ITS ---
HPI - Asthma General Chief Complaint: Asthma Stated Complaint: SOB Time Seen by Provider: 07/02/22 18:46 Source: patient Mode of arrival: Ambulatory Limitations: no limitations History of Present Illness HPI Narrative: 21-year-old female. Past couple days has had cough and congestion. She does have history of asthma. She has been using her inhaler at home. No fevers. Not productive cough. No chest pain. Patient did receive a nebulizer treatment prior to my evaluation. She states she feels somewhat better after that nebulizer. Related Data Previous Rx's Medication Instructions Recorded diazepam 5 mg tablet 5 mg PO DAILY anxiety #10 tabs 02/17/21 albuterol sulfate 90 mcg/actuation 2 puff inhalation Q4-6H PRN 05/05/22 aerosol inhaler shortness of breath or wheezing #6.7 grams inhalational spacing device #1 ea 05/05/22 (BreatheRite MDI Spacer) phenazopyridine 200 mg tablet 200 mg PO QPC PRN pain 6 doses #7 06/08/22 (Pyridium) tabs Allergies Allergy/AdvReac Type Severity Reaction Status Date / Time No Known Drug Allergies Allergy Verified 07/02/22 17:26 Review of Systems Constitutional Constitutional: Reports system reviewed and no additional complaints, except as documented ENT Ears, Nose, Mouth, and Throat: Reports system reviewed and no additional complaints, except as documented Respiratory Respiratory: Reports system reviewed and no additional complaints, except as documented Integumentary/Breasts Skin/Breast: Reports system reviewed and no additional complaints, except as documented Patient History Social History Smoking Status: Current every day smoker Smoking Status: Current every day smoker alcohol intake frequency: 0-2 drinks per day Substance Use Type: marijuana Exam Initial Vital Signs Initial Vital Signs: Vital Signs Temperature 98.2 F 07/02/22 17:26 Pulse Rate 102 H 07/02/22 17:26 Respiratory Rate 28 H 07/02/22 17:26 Blood Pressure 157/92 H 07/02/22 17:26 Pulse Oximetry 97 07/02/22 17:26 Oxygen Delivery Method 07/02/22 17:26 Const General: cooperative and comfortable HENMT Head: normal to inspection and normocephalic Resp Effort & Inspection: normal respiratory effort, no grunting, not labored, no r espiratory distress, no retractions and not tachypneic Auscultation: clear to auscultation bilaterally, no rhonchi and no wheezes Cardio Rate: regular rate Rhythm: regular rhythm Skin General: no rashes or lesions noted Neuro General: patient alert, patient awake and moves all extremities Extrem General: normal to inspection, capillary refill normal and No edema Psych Appearance: grossly normal Course Orders Ordered: Discontinued Medications Albuterol/Ipratropium (Albuterol/Ipratropium 3 Ml Ampul) 3 ml INH NOW ONE Stop: 07/02/22 18:47 Last Admin: 07/02/22 18:48 Dose: 3 ml Documented By: TEO Dexamethasone (Dexamethasone 4 Mg Tablet) 12 mg PO NOW ONE Stop: 07/02/22 19:45 Last Admin: 07/02/22 20:00 Dose: 12 mg Documented By: ANA Vital Signs Vital signs: Vital Signs - 8 hr 07/02/22 18:48 07/02/22 19:00 07/02/22 19:30 Temperature Pulse Rate 92 H 105 H 97 H Respiratory Rate 18 Blood Pressure Pulse Oximetry 97 97 97 Oxygen Delivery Method Room Air Oxygen Flow Rate 0 Fraction of Inspired Oxygen 21 07/02/22 19:58 07/02/22 19:58 Temperature 98.3 F Pulse Rate 96 H Respiratory Rate Blood Pressure 165/77 H Pulse Oximetry 96 Oxygen Delivery Method Oxygen Flow Rate Fraction of Inspired Oxygen MDM - Asthma Differential Diagnosis Differential diagnosis: Likely Acute exacerbation, Status asthmaticus, Pneumonia and Pneumothorax Condition is:: Improved Chronic Condition is having:: Mild excerbation Condition is at treatment goal?: Yes Lab Data Labs: Lab Results 07/02/22 Range/Units 17:34 SARS-CoV-2 (PCR) Negative (Negative) Influenza A (RT-PCR) Flu a negative (NEGATIVE) Influenza B (RT-PCR) Flu b negative (NEGATIVE) RSV (PCR) Negative (Negative) MDM Narrative Medical decision making narrative: Her respiratory panel was negative. My initial evaluation was after she would received a nebulizer treatment and she stated that she did feel better and her lungs were clear. She is not hypoxic. Not tachypneic. She was given a dose of steroids here in the emergency department. She has albuterol at home. There is no indication for antibiotics as she most likely has a viral upper respiratory infection.. She was given return precautions and follow-up instructions. She expressed understanding and agreement. Discharge Plan Departure Patient Disposition: Home Clinical Impression: Acute upper respiratory infection, Asthma Instructions: DI for Viral Upper Respiratory Infection -- Adult Activity Restrictions/Additional Instructions: Continue to take all of your medications as directed. You can try [id number] cough and cold preparations like we discussed. Use your albuterol inhaler as needed as well. Contact your primary doctor for follow-up. Return to the emergency department for any new or worsening symptoms. Prescriptions: No Action albuterol sulfate 90 mcg/actuation HFA aerosol inhaler 2 puff inhalation Q4-6H PRN (Reason: shortness of breath or wheezing) Qty: 6.7 0RF (DME) BreatheRite MDI Spacer Spacer See Rx Instructions .Route Qty: 1 0RF Rx Instructions: As directed diazepam 5 mg tablet 5 mg PO DAILY Qty: 10 0RF phenazopyridine [Pyridium] 200 mg tablet 200 mg PO QPC PRN (Reason: pain) Qty: 7 0RF Referrals: Tian Dumas MD [Primary Care Provider] - Stand Alone Forms: Patient Portal/API
[2022-07-02] MEDS: dexAMETHasone 4 MG TABLET 12 MG PO (20:00)
== END 2022-07-02 20:08 | disposition home or self-care (01) ==
PROVIDERS: Emergency Medicine; Emergency Provider Emergency Medicine; PCP Family Medicine
DX: J06.9 Acute upper respiratory infection, unspecified (principal); J45.909 Unspecified asthma, uncomplicated; Z20.822 Contact with and (suspected) exposure to COVID-19
CPT/HCPCS: 0241U; 94640; 99283

== ENCOUNTER 2022-08-24 22:40 | Emergency (ER) | payer OTHER, MEDICAID, SELFPAY ==
[2022-08-24 22:57] VITALS: BP 158/97; PULSE 98; RESP 25; TEMP 36.6; O2SAT 96; BMI 49.4
== END 2022-08-25 03:06 | disposition left against medical advice (07) ==
PROVIDERS: Emergency Provider Emergency Medicine; PCP Family Medicine
CPT/HCPCS: 99281